=== PATIENT | female | born 1990 | race Two or more races ===

== ENCOUNTER 2019-05-23 20:47 | Emergency (ER) | payer SELFPAY ==
[~2019-05-23] VITALS: Ht 157.5 cm; Wt 61.0 kg
[2019-05-24] MEDS ORDERED: SODIUM CHLORIDE 0.9% 1,000 ML IV ONE (00:07)
[2019-05-24] MEDS ORDERED: LORAZEPAM 2MG/ML CPJ IV ONE (00:15)
[2019-05-24 00:29] LABS: BASOPHILS % 0.5 % (0.0-2.0); EOSINOPHILS % 1.6 % (0.0-5.0); HEMATOCRIT. 44.8 % (36.0-48.0); HEMOGLOBIN. 15.1 g/dL (12.0-16.0); MEAN CORPUSCULAR HEMOGLOBIN 29.7 pg (28.0-32.0); MEAN CORPUSCULAR VOLUME 87.8 fL (81.0-99.0); MEAN PLATELET VOLUME 8.3 fl (7.4-10.4); MONOCYTES % 6.6 % (2.0-8.0); NEUTROPHILS % 61.3 % (40.0-76.0); PLATELET 418 x1000/uL (130-400); RED CELL DISTRIBUTION WIDTH 13.8 % (11.6-14.6)
[2019-05-24 00:34] LABS: CHLORIDE 103 mEq/L (98-107)
[2019-05-24 00:35] LABS: CLARITY URINE TURBID (CLEAR); COLOR URINE DARK YELLOW (YELLOW); KETONES URINE 2+ (NEGATIVE); LEUKOCYTE ESTERASE URINE TRACE (NEGATIVE); NITRITE URINE NEGATIVE (NEGATIVE); OCCULT BLOOD URINE NEGATIVE (NEGATIVE); PROTEIN URINE NEGATIVE (NEGATIVE); SPECIFIC GRAVITY URINE 1.025 (1.005-1.030)
[2019-05-24 00:38] LABS: ETHANOL BLOOD < 10 mg/dL
[2019-05-24 00:48] LABS: *BARBITURATES SCREEN URINE NEGATIVE (NEGATIVE); *BENZODIAZEPINES SCREEN URINE NEGATIVE (NEGATIVE)
[2019-05-24 00:49] LABS: *COCAINE SCREEN URINE NEGATIVE (NEGATIVE); METHADONE URINE SCREEN NEGATIVE (NEGATIVE); OPIATES URINE SCREEN NEGATIVE (NEGATIVE); PHENCYCLIDINE URINE SCREEN NEGATIVE (NEGATIVE)
[2019-05-24 00:52] LABS: *AMPHETAMINES SCREEN URINE PRESUMTIVE POSITIVE (NEGATIVE); CANNABINOID URINE SCREEN PRESUMTIVE POSITIVE (NEGATIVE)
[2019-05-24 01:47] LABS: HCG SCREEN NEGATIVE
[2019-05-24] MEDS ORDERED: OLANZAPINE 10 MG/VIAL IM ONE (03:00)
[2019-05-24 06:39] VITALS: BP 92/62
== END 2019-05-24 07:09 | disposition home or self-care (01) ==
LOC: ER 20:47
DX: F15.129 Other stimulant abuse with intoxication, unspecified (principal); R41.82 Altered mental status, unspecified; R94.31 Abnormal electrocardiogram [ECG] [EKG]; Z78.1 Physical restraint status
CPT/HCPCS: 36415; 80053; 80305; 80307; 80320; 80329; 81003; 81025; 84703; 85025; 93005; 96361; 96372; 96374; 99284; J2060; J3490; J7030; Z7610; G0480